=== PATIENT | male | born 1965 | race Caucasian/White ===

== ENCOUNTER 2017-02-18 05:56 | Inpatient (IN) | payer OTHER ==
--- NOTE | 2017-01-30 09:12 | GHP ---
[f rep st] PREOP HISTORY AND PHYSICAL DATE OF ADMISSION: 02/18/2017 PROBLEM: Right hip severe degenerative arthritis. HISTORY OF PRESENT ILLNESS: The patient is a 51-year-old man admitted for a right hip Tracie hip resurfacing arthroplasty. He has been aware of progressive pain in both hips for the past 5 or 6 years. He underwent a successful left BHR in June 2016. He is having daily pain and night pain in his right hip. Walking and bicycling are painful. He has trouble putting on his shoes and socks on the right foot. His activities are now very limited. 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 He is admitted for a right BHR. PAST MEDICAL HISTORY: Excellent general health. No history of hepatitis, DVT, sleep apnea, or previous serious MRSA staph infections. CURRENT MEDICATIONS: None. DRUG ALLERGIES: None. SOCIAL HISTORY: The patient is . He does not smoke cigarettes or drink alcohol. 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 FAMILY HISTORY: Positive for cancer and hypertension. PHYSICAL EXAMINATION: GENERAL: He is a muscular fit-appearing man, height 6 feet 2 inches. Weight 190 pounds. BMI 24.4. EYES: The conjunctivae and sclerae are clear. Pupils are round and reactive. MOUTH: Good oral hygiene. No loose teeth. CHEST: Clear. HEART: Regular rhythm. No murmurs. EXTREMITIES: Pertinent findings limited to his right hip. He has full hip extension and 70 degrees of flexion. As he flexes the hip, he develops a 10- degree external rotation contracture and has 10 additional degrees of external rotation. Abduction 20 degrees. IMAGING: His films show severe degenerative arthritis of the right hip. He has flattening of the femoral head. A large cam lesion is present. His left BHR looks excellent. The femoral head component on the left side is 52 mm, and the acetabular component is 58 mm. IMPRESSION ON ADMISSION: 1. Right hip advanced degenerative arthritis. He is prepared for a right BHR. 2. Seven months status post successful left BHR. PLAN: The surgery has been described to him including the risks, complications , expectations, and recovery time. I have talked to him about the risk of infection, dislocation, leg length inequality, femoral neck fracture, and sciatic nerve injury. We have also discussed at length the controversial issue of a suetb-mi-tysyi bearing surface with elevated metal ions in the blood and in the soft tissues around the hip joint. All his questions have been answered , and he consents to surgery. Copy requested to: Dr. Scott Chou /[id number]/MODL MTDD
[2017-02-14 11:32] LABS: % IMMATURE GRANULYOCYTES 0.2 % (0.0-1.1); ABSOLUTE IMMATURE GRANULOCYTES 0.01 10^3/uL (0.00-0.10); ADD DIFF? NO; ADD MORPH? NO; ADD SCAN? NO; ATYPICAL LYMPHOCYTE FLAG 20 (0-99); FRAGMENT RBC FLAG 0 (0-99); HEMATOCRIT 47.6 % (40.0-51.0); HEMOGLOBIN 16.2 g/dL (13.7-17.5); LEFT SHIFT FLG 0 (0-99); LIPEMIA HEMOLYSIS FLAG 90 (0-99); MEAN CELL VOLUME 88.1 fL (81.5-99.8); MEAN PLATELET VOLUME 9.1 fL (8.7-11.7); PLATELET CLUMPS FLAG 0 (0-99); PLATELET COUNT 242 10^3/uL (150-400); RED CELL DISTRIBUTION WIDTH 13.1 % (11.5-15.2)
[2017-02-18] MEDS ORDERED: NS IV ONE (06:00)
[2017-02-18] MEDS ORDERED: POVIDONE-IODINE 20 ML in SODIUM CL IRRIG SOLUTION 500 ML IRR ONE (06:00)
[2017-02-18] MEDS ORDERED: ACETAMINOPHEN 325 MG TAB PO ONE (06:00)
[2017-02-18] MEDS ORDERED: FAMOTIDINE 20 MG TAB PO ONE (06:00)
[2017-02-18] MEDS ORDERED: TRANEXAMIC ACID IV ONE (06:00)
[2017-02-18] MEDS ORDERED: DEXAMETHASONE 4 MG/ML VIAL IVP ONE (06:00)
[2017-02-18] MEDS ORDERED: CEFAZOLIN 2 GM/DEXTR 100 ML IV ONE (06:00)
[2017-02-18] MEDS ORDERED: ROPI/epINEPH/KETOROLAC IU ONE (06:00)
[2017-02-18] MEDS ORDERED: LIDOCAINE 1% 2 ML INJ ONE (06:12)
[2017-02-18] MEDS ORDERED: ceFAZolin 1 GM/5 ML SYR ONE (06:50)
[2017-02-18] MEDS ORDERED: MIDAZOLAM 2 MG/2 ML VIAL ONE (06:57)
--- NOTE | 2017-02-18 07:06 | PDANEPAE ---
ANE History of Present Illness Pt for Right JAS, resurface ANE Past Medical History Past Medical History: Pt had cardiac cath during evaluation of percarditis Cath showed no evidence of CAD - Cardiovascular History Hx Hypertension: No Hx Arrhythmias: No Hx Chest Pain: No Hx Coronary Artery / Peripheral Vascular Disease: No Hx CHF / Valvular Disease: No Hx Palpitations: No - Pulmonary History Hx COPD: No Hx Asthma/Reactive Airway Disease: No Hx Recent Upper Respiratory Infection: No Hx Oxygen in Use at Home: No - Neurologic History Hx Cerebrovascular Accident: No Hx Seizures: No Hx Dementia: No - Endocrine History Hx Diabetes: No - Renal History Hx Renal Disorders: No - Liver History Hx Hepatic Disorders: No - Neurological & Psychiatric Hx Hx Neurological and Psychiatric Disorders: No - Cancer History Hx Cancer: No - Congenital Disorder History Hx Congenital Disorders: No - GI History Hx Gastrointestinal Disorders: No - Chronic Pain History Chronic Pain: Yes (LEFT HIP) ANE Review of Systems - Exercise capacity METS (RN): 4 METS - Systems Constitutional: Reports: no symptoms Cardiac: Reports: no symptoms Respiratory: Reports: no symptoms Skin: Reports: no symptoms Neurological: Reports: no symptoms ANE Patient History - Allergies Allergies/Adverse Reactions: No Known Allergies Allergy (Unverified 05/23/16 09:45) - Home Medications Home Medications: NK [No Known Home Meds] 02/11/17 [Last Taken Unknown] - NPO status NPO Since - Liquids (Date): 02/17/17 NPO Since - Liquids (Time): 22:00 NPO Since - Solids (Date): 02/17/17 NPO Since - Solids (Time): 22:00 - Anes Hx Anes Hx: no prior problems - Smoking Hx Smoking Status: Never smoked - Alcohol Use Alcohol Use: None - Family Anes Hx Family Anes Hx: none Family Hx Anesthesia Complications: none ANE Labs/Vital Signs - Labs Result Diagrams: 02/14/17 11:01 - Vital Signs Blood Pressure: 127/86 Heart Rate: 60 Respiratory Rate: 16 O2 Sat (%): 93 Height: 187.96 cm Weight: 92.986 kg
[2017-02-18] MEDS ORDERED: MIDAZOLAM 2 MG/2 ML VIAL IVP ONE (07:08)
--- NOTE | 2017-02-18 07:08 | PDHPUP ---
History & Physical Update H&P update statement: This history and physical update is based on an assessment of the patient which was completed after admission or registration (within 24 hours), but prior to the surgery/procedure. H&P update: H&P reviewed & patient examined, no change in patient's condition since H&P completed
[2017-02-18] MEDS ORDERED: fentaNYL 100 MCG/2 ML INJ ONE (07:37)
[2017-02-18] MEDS ORDERED: PROPOFOL/EMULSION 500 MG/50 ML BOTTLE IV ONE (07:37)
[2017-02-18] MEDS ORDERED: LIDOCAINE 2% 5 ML SDV ONE (07:38)
[2017-02-18] MEDS ORDERED: ONDANSETRON 4 MG/2 ML VIAL IVP PRN ×2 (08:11→09:23)
[2017-02-18] MEDS ORDERED: PROMETHAZINE HCL 25 MG/ML INJ IVP PRN ×2 (08:11→09:23)
[2017-02-18] MEDS ORDERED: fentaNYL 100 MCG/2 ML INJ IVP PRN (08:11)
[2017-02-18] MEDS ORDERED: NALOXONE HCL 0.4 MG/ML INJ IVP PRN (08:11)
[2017-02-18] MEDS ORDERED: PHENYLEPHRINE HCL 100 MCG/ML SYR ONE (08:25)
--- NOTE | 2017-02-18 09:05 | POSTOPPROG ---
Post Op Note Date of Operation: 02/18/17 Surgeon: Vinh Cline General Labor Forklift Operator: Oksana/Khoi Anesthesiologist: Warm Anesthesia: IV Sedation, Spinal Post-op Diagnosis: L hip arthritis Procedure: L BHR Inf/Abcess present in the surg proc area at time of surgery?: No EBL: 100-500
[2017-02-18] MEDS ORDERED: diphenhydrAMINE 25 MG CAP PO PRN (09:23)
[2017-02-18] MEDS ORDERED: oxyCODONE IR 5 MG TAB PO PRN (09:23)
[2017-02-18] MEDS ORDERED: traMADol 50 MG TAB PO PRN (09:23)
[2017-02-18] MEDS ORDERED: MAGNESIUM HYDROXIDE 30 ML UDCUP PO PRN (09:23)
[2017-02-18] MEDS ORDERED: POLYETHYLENE GLYCOL 3350 17 GM PKT PO PRN (09:23)
[2017-02-18] MEDS ORDERED: BISACODYL 10 MG SUPP PR PRN (09:23)
[2017-02-18] MEDS ORDERED: METOCLOPRAMIDE 10 MG/2 ML VIAL IVP PRN (09:23)
[2017-02-18] MEDS ORDERED: KETOROLAC 30 MG/1 ML SDV IVP PRN (09:23)
[2017-02-18] MEDS ORDERED: PHARMACY PAIN CONSULT 1 EA MISC PRN (09:23)
[2017-02-18] MEDS ORDERED: DIPHENOXYLATE/ATROPINE LOMOTIL 1 TAB PO PRN (09:23)
[2017-02-18] MEDS ORDERED: TEMAZEPAM 15 MG CAP PO PRN (09:23)
[2017-02-18] MEDS ORDERED: CYCLOBENZAPRINE 10 MG TAB PO PRN (09:23)
[2017-02-18] MEDS ORDERED: ONDANSETRON DISINTEGRATING 4 MG TAB PO PRN (09:23)
[2017-02-18] MEDS ORDERED: PROMETHAZINE HCL 25 MG SUPPR PR PRN (09:23)
[2017-02-18] MEDS ORDERED: NS 500 ML IV PRN (09:23)
[2017-02-18] MEDS ORDERED: LACTULOSE 20 GM/30 ML UDCUP PO PRN (09:23)
--- NOTE | 2017-02-18 09:23 | POSTANESTH ---
Post Anesthetic Evaluation Cardiovascular Status: Normal, Stable Respiratory Status: Normal, Stable Level of Consciousness/Mental Status: Can Participate in Eval, Mildly Sleepy, Arousable Pain Control: Adequate, Prn Tx Ordered Nausea/Vomiting Control: Adequate, Prn Tx Ordered Complications Possibly Related to Anesthesia: None Noted Notes: Tolerated spinal well
[2017-02-18] MEDS ORDERED: LR 1,000 ML IV SCH (09:30)
--- NOTE | 2017-02-18 10:26 | GOP ---
[f rep st] OPERATIVE REPORT DATE OF OPERATION: 02/18/2017 SURGEON: Vinh Cline MD PIGMENT PROCESSOR: Bang Gandhi and Naren Fink ANESTHESIA: A combination of Marcaine, spinal, and IV sedation. ANESTHESIOLOGIST: Medardo Rendon MD PREOPERATIVE DIAGNOSIS: Right hip severe degenerative arthritis. POSTOPERATIVE DIAGNOSIS: Right hip severe degenerative arthritis. PROCEDURE PERFORMED: On 02/18/2017, right hip Tracie hip resurfacing arthroplasty. FINDINGS: ESTIMATED BLOOD LOSS: About 400 mL. DESCRIPTION OF PROCEDURE: The patient was given 2 g of IV Ancef preoperatively within 60 minutes of surgery. He also received IV tranexamic acid at a dose of 20 mg/kg. [facility] and given spinal anesthesia with Marcaine by Dr. Rendon. He was then placed supine and g iven IV sedation. A Lara catheter was not used. He wore a compressive stocking and SCD on the non operative leg. He was rolled to the left lateral decubitus position. The position was secured with the pegboard table attachment. I was careful to lock his pelvis in a rigid vertical position. His perineum was isolated with plastic adhesive drapes. The right hip and right lower extremity were p repped with ChloraPrep. They were draped free using sterile sheets, stockinette, and Ioban plastic drape. The [employer] time-out was performed to verify the correct patient identity and the correct surgical side. The [place] time-out was also performed. I made a 6-7 inch straight oblique posterolateral hip skin incision. Subcutaneous tissues were ludwig ply divided, and hemostasis was obtained using electrocautery. The fascia katie was identified and s plit along the axis of its fibers. I then curved posteriorly and proximally, and split the fascia o f gluteus cameron and bluntly split the muscle fibers in line with their orientation. His sciatic n erve was identified and protected throughout the procedure. The Charnley self-retaining retractor w as inserted. The external rotators and the posterior capsule were divided as separate layers at the base of the femoral neck, tagged, and reflected posteriorly. The gluteus cameron tendon was divide d and tagged in order to improve exposure and release tension on the sciatic nerve. The hip was dis located posteriorly. I used a sizing gauge to check the diameter of the neck and concluded that 50 mm was the proper head size. I recognized that this was 1 size smaller than I had used on his oppos ite hip several years ago. I performed a circumferential capsulotomy. I was able to retract the fe moral head anteriorly and superiorly and hold it out of place with appropriate retractors. The remn ant of his damaged labrum was completely excised. His acetabulum was reamed sequentially up to 56 m m. I selected the [place] monoblock porous-coated acetabular component with an outside diameter of 56 mm. This was firmly impacted and was a very tight fit. I was careful to determine proper inc lination and anteversion. I used the transverse acetabular ligament and other acetabular bony landm arks to help me determine proper cup orientation. I was careful to leave a lip of bone and capsule extending beyond the anterior-inferior lip of the metal cup. I then returned to preparation of the femoral head. Using appropriate jigs and guides, I inserted a guidepin into the femoral head and neck. I was careful to position it in such a way that there wou ld be no notching of the neck. The large sterile metal goniometer was used to check the neck shaft angle. I reamed over the guidepin and inserted the reaming guide. I then used the cylindrical ream er down to the head and neck junction. This was followed by the flat reamer and the chamfer reamer. The head was sized for 50 mm. There was no impingement or damage to the neck. I drilled a small hole in the lesser trochanter and inserted a suction cannula to create negative pressure in the medu llary canal. Small holes were drilled on the flat and chamfer surfaces of the prepared head for rg ent anchors. The head was thoroughly cleaned with the pulsating lavage and carefully dried. I used a CarboJet device to blow-dry the cancellous surfaces. A single batch of Simplex cement with tobra mycin was mixed. At about 50 seconds, I poured the liquid cement into the head component, inserted it onto the femoral head, and impacted it into place. Excess cement was removed before it hardened. The acetabulum was irrigated, cleaned, inspected, and the hip was reduced. Stability and range of motion were checked. I placed my finger along the anterior aspect of the acetabular component and flexed the hip to 110 degrees. There was no anterior impingement. The suction cannula on the lesse r trochanter was removed. The joint was thoroughly irrigated with a dilute Betadine solution. 40 m L of the joint anesthetic cocktail were injected into the capsule, the deep musculature, and the sub cutaneous tissues along the skin edges. His sciatic nerve was reinspected and looked unharmed. The external rotators and the posterior capsule were repaired in separate layers with #2 FiberWire sutu res through drill holes in the greater trochanter. This provided a strong posterior capsular and ex ternal rotator repair. The gluteus cameron tendon was repaired with 2 interrupted [id number] # 2 FiberWire sutures. The fascia katie was repaired first with 2 interrupted [id number] #2 Fiber Wire sutures, followed by a running #2 barbed Ethicon Stratafix PDO suture. The subcutaneous tissue s were closed with a running 0 barbed Ethicon Stratafix Monoderm suture. The skin was closed with a running 3-0 barbed Ethicon Stratafix Monoderm subcuticular suture. The skin edges were reapproxima sanjay and sealed with Dermabond glue. The wound was covered with a strip of Telfa, and everything was held in place with a piece of clear plastic Tegaderm. COMPONENTS: I used a [employer] [place] hip resurfacing system. The acetabular component was 56 mm in diameter and press-fit. The femoral head was 50 mm and cemented. He was awakened from anesthesia and rolled to the supine position on his [facility]. A long-le g compressive stocking and SCD were applied to the operative leg. An abduction pillow was placed be tween his knees. He was taken to PACU in satisfactory condition. There were no recognized intraope rative complications. The sponge and needle count were correct on 2 occasions. Bang Gandhi and Naren Fink acted as surgical assistants. Their assistance was a medical mayank angel. Copy requested to: Dr. Scott Chou /[id number]/[facility] [place]
[2017-02-18] MEDS: ACETAMINOPHEN 325 MG TAB PO SCH ×2 (11:34→17:55)
[2017-02-18] MEDS: ceFAZolin 2 GM/DEXTROSE 100 ML IV SCH ×2 (14:13→21:55)
[2017-02-18] MEDS: TRANEXAMIC ACID 650 MG TAB PO SCH ×2 (14:13→22:08)
[2017-02-18] MEDS: SENNOSIDES/DOCUSATE SODIUM TAB PO SCH (21:55)
[2017-02-18] MEDS: FAMOTIDINE 20 MG TAB PO SCH (21:55)
[2017-02-18] MEDS: ASPIRIN 325 MG TAB PO SCH (22:06)
[2017-02-19] MEDS: ACETAMINOPHEN 325 MG TAB PO SCH ×2 (02:58→06:11)
[2017-02-19 05:39] LABS: HEMATOCRIT 38.5 % (40.0-51.0); HEMOGLOBIN 13.2 g/dL (13.7-17.5)
[2017-02-19] MEDS: TRANEXAMIC ACID 650 MG TAB PO SCH (06:12)
[2017-02-19 08:10] VITALS: BP 116/72; PULSE 60; RESP 13; TEMP 97.8; O2SAT 95
[2017-02-19] MEDS ORDERED: FERROUS SULFATE 140 MG TAB.ER PO SCH (09:00)
--- NOTE | 2017-02-19 09:44 | SOAPPROG ---
SOAP Progress Note Assessment/Plan: Assessment: Awake and alert. Mild pain. Up and walking. H/H is good. Sciatic nerve intact. Films look good. Plan:PT today. DC later today. 02/19/17 09:43 Objective: Vital Signs Temp Pulse Resp BP Pulse Ox 36.6 C 60 13 116/72 95 02/19/17 08:00 02/19/17 08:00 02/19/17 08:00 02/19/17 08:00 02/19/17 08:00 Laboratory Results 02/19/17 04:29 02/18/17 02/19/17 02/20/17 05:59 05:59 05:59 Intake Total 1600 Output Total 600 Balance 1000 ICD10 Worksheet Patient Problems: Problems Problem Status Onset Osteoarthritis of right hip Acute Osteoarthritis of left hip Acute
[2017-02-19] MEDS: FAMOTIDINE 20 MG TAB PO SCH (09:56)
[2017-02-19] MEDS: ASPIRIN 325 MG TAB PO SCH (09:56)
[2017-02-19] MEDS: SENNOSIDES/DOCUSATE SODIUM TAB PO SCH (09:56)
--- NOTE | 2017-02-19 10:29 | GDS ---
[f rep st] DISCHARGE SUMMARY ADMITTING DIAGNOSIS: Right hip degenerative arthritis. DISCHARGE DIAGNOSIS: Right hip degenerative arthritis. OPERATION PERFORMED: On 02/18/2017, a right [place] hip resurfacing arthroplasty. POSTOPERATIVE COMPLICATIONS: None. CONDITION ON DISCHARGE: Improved. DESCRIPTION OF HOSPITAL COURSE: The patient was admitted to the hospital on the morning of surgery. His admission CBC was normal. The same day, under a combination of Marcaine, spinal, and IV sedat ion, he underwent a right hip Tracie hip resurfacing arthroplasty. Postoperatively, he was treated with multimodal DVT prophylaxis, including aspirin. On the first po stoperative day, his hemoglobin and hematocrit were 13.2 and 38.5. He was seen by Physical Therapy and made excellent progress with ambulation and stairs. By the time of discharge, he was afebrile and was independent walking. DISPOSITION: The patient discharged to his home. DISCHARGE INSTRUCTIONS: He will go to outpatient physical therapy. He may progress to full weightb earing on the right as tolerated. Use an abduction pillow in bed for 3 weeks. Continue aspirin 325 mg p.o. daily for 21 days. He has prescription for oxycodone and tramadol for pain control. Use T ED stockings for 1 week. I will see him back. In the office in 3 weeks. If there are any problems , he is to call me at the office. /[id number]/MODL
== END 2017-02-19 12:11 | disposition home or self-care (01) | DRG 470 ==
LOC: F3N 05:56
PROVIDERS: ADMIT Orthopaedic Surgery; ATTEND Orthopaedic Surgery
PROC: 0SU90BZ Supplement Right Hip Joint with Resurfacing Device, Open Approach (ICD-10-PCS; principal; 2017-02-18 07:15)
DX: M16.11 Unilateral primary osteoarthritis, right hip (principal)
CPT/HCPCS: 97116-GP; 97161-GP; 97165-GO; C1713; C1769; J0171; J0690; J1100; J1885; J2250; J2370; J2704; J2795; J3010